=== PATIENT | male | born 1985 | race Two or more races ===

== ENCOUNTER 2025-06-23 04:32 | Emergency (ER) | payer SELFPAY ==
[2025-06-23 04:52] VITALS: BP 138/83; PULSE 79; RESP 18; TEMP 98.1; BMI 24.7
[2025-06-23] MEDS ORDERED: ACETAMINOPHEN 325 MG TABLET (FP) ONE (06:14)
[2025-06-23] MEDS: LACTATED RINGERS SOLUTION 1000 ML INFUS.BAG IV ONE (06:25)
[2025-06-23] MEDS: ACETAMINOPHEN 500 MG TABLET (FP) PO ONE (06:25)
== END 2025-06-23 07:09 | disposition home or self-care (01) ==
LOC: JER 04:32
DX: R19.7 Diarrhea, unspecified (principal); R10.84 Generalized abdominal pain
CPT/HCPCS: 99283-25